=== PATIENT | male | born 1980 | race Caucasian/White ===

== ENCOUNTER 2019-10-23 00:39 | Emergency (ER) | payer OTHER ==
[~2019-10-23] VITALS: Ht 170.2 cm; Wt 74.8 kg
[2019-10-23 00:40] VITALS: BP 142/98
[2019-10-23] MEDS ORDERED: NOHOMEMEDICATIONS (00:46)
== END 2019-10-23 02:20 | disposition left against medical advice (07) ==
LOC: ER 00:39
DX: Z53.21 Procedure and treatment not carried out due to patient leaving prior to being seen by health care provider (principal)

== ENCOUNTER 2020-08-11 05:21 | Emergency (ER) | payer OTHER ==
[~2020-08-11] VITALS: Ht 170.2 cm; Wt 72.6 kg
[~2020-08-11 05:21] MED LIST: NOHOMEMEDICATIONS
[2020-08-11] MEDS ORDERED: BACTRIM DS TAB1 EAC1 PO (06:27)
[2020-08-11] MEDS ORDERED: KEFLEX500 M1 PO (06:27)
[2020-08-11] MEDS ORDERED: NORCO 5-325 TA1 EAC2 PO (06:27)
[2020-08-11 06:40] VITALS: BP 132/88
== END 2020-08-11 06:40 | disposition home or self-care (01) ==
LOC: ER 05:21
DX: L02.413 Cutaneous abscess of right upper limb (principal); L03.113 Cellulitis of right upper limb; K21.9 Gastro-esophageal reflux disease without esophagitis; Z86.14 Personal history of Methicillin resistant Staphylococcus aureus infection; Z98.890 Other specified postprocedural states; Z88.6 Allergy status to analgesic agent; Z88.8 Allergy status to other drugs, medicaments and biological substances